=== PATIENT | male | born 2000 | race Caucasian/White ===

== ENCOUNTER 2023-11-29 14:18 | Emergency (ER) | payer OTHER, SELFPAY ==
[2023-11-29 14:19] VITALS: BP 130/80; PULSE 86; RESP 16; TEMP 36.1; O2SAT 98; BMI 37.5
[2023-11-29] MEDS: Ibuprofen 600 MG Tablet PO (14:45)
[2023-11-29] MEDS: Orphenadrine 100 MG Tablet PO (14:45)
--- NOTE | 2023-11-29 14:50 | EDS_ITS ---
HPI <JENNIFER Wakeifeld - Last Filed: 11/29/23 14:58> History of Present Illness Chief Complaint: Back Narrative Narrative: Patient is a 23-year-old male with no significant ankle history, presenting to the emergency department after injuring himself at work. Pay states he works for [employer], does a lot of heavy lifting. Pay states he was carrying something when he felt a pop in his lower back. Patient states it took his breath away, and now he is unable to stand straight up. He denies any fall traumatic injury. Denies any bowel or bladder cons, denies any fever or chills. Here for evaluation. Denies any surgeries to his lower lumbar spine. This is Worker's Comp. PFSH <JENNIFER Wakefield - Last Filed: 11/29/23 14:58> [facility] Home Medications ?Medication ?Instructions ?Recorded ?Last Taken ?Type cyclobenzaprine 10 mg tablet 10 mg PO TID PRN Muscle Spasm #20 11/29/23 Unknown Rx TABLETS naproxen 500 mg tablet (Naprosyn) 500 mg PO BID PRN pain #20 tabs 11/29/23 Unknown Rx Allergy/AdvReac Type Severity Reaction Status Date / Time No Known Allergies Allergy Verified 11/29/23 14:22 Social History Smoking Status: Unknown if ever smoked ROS <JENNIFER Wakefield - Last Filed: 11/29/23 14:58> ROS ED ROS Narrative Constitutional: Negative for fever, chills, weight loss, weakness Eyes: Negative for vision loss, vision change, double vision ENT: Negative for any sore throat, ear pain, congestion Cardiovascular: Negative for any chest pain, tightness, palpitations Respiratory: Negative for any cough, sputum production, hemoptysis, dyspnea, dyspnea on exertion, orthopnea Gastrointestinal: Negative for any abdominal pain, nausea, vomiting, diarrhea, constipation, blood in stool, blood in vomit : Negative for any urinary frequency, dysuria, retention, blood in urine Muscle skeletal: Negative for any neck pain. Positive for lower lumbar back pain Neurological: Negative for any headache, syncope, dizziness Skin: Negative for any rashes, itching, abrasions, lacerations Psychiatric: Negative for any depression, anxiety, stress, suicidal ideation, homicidal ideation Hematologic: Negative for any excessive bruising, easy bleeding EXAM <JENNIFER Wakefield - Last Filed: 11/29/23 14:58> Physical Exam Narrative Exam Narrative: Insert ED full vital signs reviewed. HEET: Head normocephalic atraumatic, TMs clear bilaterally. Posterior pharynx is clear, moist mucous membranes. Nares clear bilaterally. Neck: Supple with no lymphadenopathy or tenderness. No signs of meningismus. Cardiac: Regular rate and rhythm no murmurs gallops or rubs, equal peripheral pulses bilaterally. Respiratory: Lungs clear to auscultation bilaterally. No chest tenderness. Abdomen: Soft, nontender, nondistended. No abdominal bruit or pulsatile masses. No hepatosplenomegaly Extremities: No peripheral edema, no signs of gross trauma or deformity. Active full range of motion of all extremities. Neuro: Cranial nerves II through XII intact, no focal neurological deficits. Skin: Clean dry and intact with no rash, purpura, petechiae, vesicles or pustules. Backs/flank: No CVA tenderness, no midline spinal tenderness, no deformity. Patient's pain is to the lower lumbar spine, this is paraspinal. Worsening pain with flexion extension. He has equal strength bilateral lower extremities. No neurological focal deficits Psych: Normal mood and affect. No SI, HI or acute psychosis. Const Vital Signs: 11/29/23 14:19 Temperature 97 F L Temperature Source Temporal Pulse Rate 86 Respiratory Rate 16 Blood Pressure 130/80 H Blood Pressure Mean 96 Pulse Ox 98 <Dr. Antonella Villaseñor, - Last Filed: 12/04/23 07:49> Physical Exam Const Vital Signs: 11/29/23 14:19 Temperature 97 F L Temperature Source Temporal Pulse Rate 86 Respiratory Rate 16 Blood Pressure 130/80 H Blood Pressure Mean 96 Pulse Ox 98 [facility] <JENNIFER Wakefield - Last Filed: 11/29/23 14:58> [facility] Treatment and Re-Evaluation :: Differential diagnosis includes however is not limited to: Lumbar fracture, lumbar strain, cauda equina, spinal abscess Patient appears generally well, vital signs are stable, patient is nontoxic- appearing. Presenting to the emerged department after hurting his back while at work. This does seem to be a muscle skeletal injury, there is no red flag signs. Patient is ambulatory, patient has no neurological focal deficits. Patient did have the initial FROI filled out. Patient does have restrictions for 1 week, he does have to follow-up with the [facility]. He will be given anti-inflammatories, muscle relaxers. Structured ice and heat. All questions were answered, stable for discharge <Dr. Antonella Villaseñor DO - Last Filed: 12/04/23 07:49> [facility] Treatment and Re-Evaluation :: Differential diagnosis includes however is not limited to: Lumbar fracture, lumbar strain, cauda equina, spinal abscess Patient appears generally well, vital signs are stable, patient is nontoxic- appearing. Presenting to the emerged department after hurting his back while at work. This does seem to be a muscle skeletal injury, there is no red flag signs. Patient is ambulatory, patient has no neurological focal deficits. Patient did have the initial FROI filled out. Patient does have restrictions for 1 week, he does have to follow-up with the [facility] clinic. He will be given anti-inflammatories, muscle relaxers. Structured ice and heat. All questions were answered, stable for discharge I have personally performed a face to face assessment of the patient and have reviewed the PRETTY Note. I performed a substantive portion of the visit including all aspects of the following. My townsend findings include: History is patient is a 23-year-old male denies any send past medical history presenting with acute onset of low back pain. Patient was at work and was bending over and lifting something up when he felt a popping sensation in his back. He had immediate pain. No associated numbness or weakness of the extremities. No red flag symptoms consistent with cauda equina syndrome. He does have some paraspinal tenderness and spasm of the lumbar spine. I do not think requires imaging at this time given mechanism. Will be treated conservatively with NSAIDs and muscle relaxer. Will follow-up outpatient for Workmen's Compensation. Given return precautions. Other additions or changes: [None] Discharge Plan Triage Chief Complaint: Back ED Midlevel Provider: Florencio Berumen ED Provider: Antonella Villaseñor Dx/Rx/DC Orders Clinical Impression: Acute lumbar myofascial strain Instructions: Back Safety: Bending, Back Safety: Lifting, ED Back Sprain/Strain Prescriptions: New naproxen [Naprosyn] 500 mg tablet 500 mg PO BID PRN (Reason: pain) Qty: 20 0RF cyclobenzaprine 10 mg tablet 10 mg PO TID PRN (Reason: Muscle Spasm) Qty: 20 0RF Primary Care Provider: Care Physician,No Primary Referrals: [facility] [Non-Staff] - Activity Restrictions/Additional Instructions: You have your work restrictions for 1 week. You need to follow-up with the [facility]. You may also follow-up with the hometown urgent care. Take the anti- inflammatories, muscle relaxers as needed. Perform gentle stretching. Print Language: Bruneian Disposition Disposition: Home, Self Care Discharge Date/Time: 11/29/23 15:31
== END 2023-11-29 15:31 | disposition home or self-care (01) ==
LOC: ED 15:28
PROVIDERS: Emergency Provider Emergency Medicine; Referring Provider Emergency Medicine; Visit Provider Emergency Medicine
DX: S39.012A Strain of muscle, fascia and tendon of lower back, initial encounter (principal); X58.XXXA Exposure to other specified factors, initial encounter
CPT/HCPCS: 99283

== ENCOUNTER → 2024-07-10 | Outpatient (CLI) | payer OTHER, SELFPAY ==
[2024-07-10 17:51] LABS: Absolute Lymphocyte Count 3.05 X10^3/uL (0.83-4.51); Absolute Neutrophil Count 5.3 X10^3/uL (2.0-7.7); Basophil# 0.04 X10^3/uL; Basophil% 0.4 % (0-1); Eosinophil# 0.19 X10^3/uL; Eosinophils% 2.1 % (0-5); Hematocrit 43.3 % (40-54); Hemoglobin 15.4 g/dL (13.0-16.5); Lymphocyte # 3.05 X10^3/ul (0.83-4.51); Mean Corp Hgb Conc 35.6 g/dL (32-36); Mean Corpuscular Hgb 30.1 pg (27.0-32.0); Mean Corpuscular Volume 84.6 fL (80-94); Mean Platelet Vol. 9.2 fl (6.2-12.0); Monocyte# 0.64 X10^3/uL; Monocyte% 6.9 % (0-10); NRBC Flagged by Analyzer 0 % (0-5); Neutrophil % 57.3 % (47-70); Platelet Count 316 K/mm3 (150-450); RBC Distribution Width CV 12.6 % (11.6-14.6); RBC Distribution Width SD 38.4 fl (35.1-43.9); Red Blood Count 5.12 M/mm3 (4.6-6.2); White Blood Count 9.3 K/mm3 (4.4-11.0)
[2024-07-10 18:13] LABS: ALB/GLOB Ratio 1.6 RATIO (0.9-2.4); AST(SGOT) 34 U/L (<=37); Alanine Aminotransfer ALT/SGPT 43 U/L (<=46); Albumin, Serum 4.7 g/dL (3.5-5.0); Alkaline Phosphatase 62 U/L (40-129); Anion Gap 12 (5-15); BUN 16 mg/dL (4-19); BUN/Creat Ratio 17.9 RATIO (10-20); Calcium,Total 9.5 mg/dL (7.6-11.0); Carbon Dioxide 25.1 mmol/L (21.0-32.0); Chloride 101 mmol/L (98-108); Cholesterol 209 mg/dL (<=200); Creatinine, Serum 0.92 mg/dL (0.70-1.20); EST Glomerular Filtration Rate 118 (>60); Globulin 2.9 g/dL (2.2-4.2); Glucose 66 mg/dL (70-99); High Density Lipoprotein 44 mg/dL; Low Density Lipoprotein Calc. 142 mg/dL; Potassium 4.3 mmol/L (3.3-5.1); Protein, Total 7.6 g/dL (5.9-8.4); Sodium Level 139 mmol/L (133-145); Total Bilirubin 0.61 mg/dL (0.00-1.30); Triglycerides 115 mg/dL; Very Low Density Lipoprotein 23 mg/dL (5-40); cholesterol:hdl ratio screen 4.71
== END | disposition home or self-care (01) ==
LOC: MTLAB 14:30
PROVIDERS: PCP Physician Assistant; Referring Provider Physician Assistant; Visit Provider Physician Assistant
DX: Z00.00 Encounter for general adult medical examination without abnormal findings (principal)
CPT/HCPCS: 36415; 80053; 80061; 84443; 85025